=== PATIENT | female | born 1955 | race Caucasian/White ===

== ENCOUNTER 2016-06-07 09:13 | Observation (INO) ==
--- NOTE | 2016-06-07 09:58 | Emergency Department Note ---
Disposition Clinical Impression: DVT (deep venous thrombosis), Hypoxemia, Obesity, Arthritis, Leukocytosis, Frail elderly, Chronic back pain, Elevated C-reactive protein (CRP), Acute exacerbation of chronic obstructive airways disease, Lung nodules, Hypertension , Pulmonary hypertension Disposition: Admitted As Inpatient General Adult HPI - General Chief complaint: ED General Medical Stated complaint: joint pain Time Seen by Provider: 06/07/16 09:21 Source: EMS - History of Present Illness HPI Narrative: 61-year-old female reports the emergency department complaining of generalized joints aches and pains. She has a history of arthritis and is treated for chronic pain syndrome with narcotics. The patient was brought in by EMS. She reports they gave her breathing treatment because her lungs were somewhat coarse sounding. She does not usually wear oxygen and they were wears 3 L at night. The patient reports she has not element of COPD but does not usually require breathing medications on a regular basis or oxygen in the day. The patient denies any chest pain or marking shortness of breath. There is no history of abdominal pain vomiting or diarrhea. The patient has had no back pain no fevers. No joint swelling no trauma. No trouble moving her arms or legs independently. No difficulty with coldness blueness numbness or weakness of the arms or legs. No leg swelling or pain coughing up blood or syncope. The patient describes achiness throughout her entire body, or tachycardia currently her major joints. She has no history of rheumatoid arthritis. Onset (ago): hour(s) Pain Scale: 7 - Related Data Home Medications Medication Instructions Recorded Confirmed Cholecalciferol (Vitamin D3) 10,000 unit PO AD PRN 11/19/14 06/07/16 [Maximum D3] Ferrous Sulfate 325 mg PO BID 11/19/14 06/07/16 Hydrochlorothiazide 25 mg PO QAM 11/19/14 06/07/16 Methadone 20 mg PO Q6H PRN 11/19/14 06/07/16 Oxycodone HCl 10 mg PO Q6H PRN 11/19/14 06/07/16 Ipratropium/Albuterol Neb [Duoneb] 3 ml IH Q4HR 12/22/15 06/07/16 Metformin HCl [Glucophage] 1,000 mg PO DAILY 12/22/15 06/07/16 Sertraline [Zoloft] 50 mg PO DAILY 12/22/15 06/07/16 Alogliptin Benzoate [Alogliptin] 25 mg PO DAILY 06/07/16 06/07/16 Aspirin 81 mg PO DAILY 06/07/16 06/07/16 Docusate Sodium [Dok] 100 mg PO DAILY PRN 06/07/16 06/07/16 Levothyroxine [Synthroid] 50 mcg PO 0630 06/07/16 06/07/16 Previous Rx's Medication Instructions Recorded Albuterol Sulfate [Albuterol 1 puff IH Q6HR #1 inh 11/20/14 Inhaler] Allergies Allergy/AdvReac Type Severity Reaction Status Date / Time naproxen [From Naprosyn] AdvReac Severe Swelling Verified 06/07/16 14:53 All systems ED: reviewed and negative except as stated. Past Medical History - Past Medical History Medical history: Reports: arthritis, COPD, diabetes, hypertension, thyroid disease, other Surgical history: Reports: appendectomy, cholecystectomy, hysterectomy, other Psychiatric history: Reports: depression CROP PRODUCTION ADVISOR history: Reports: - Social History Smoking Status: Current every day smoker Smokeless Tobacco Status: No Alcohol use: Reports: none Drug use: Reports: none Physical Exam - General Limitations: no limitations General appearance: alert, in no apparent distress - Head Head exam: atraumatic, normocephalic, normal inspection - Eye Eye exam: Present: normal appearance, PERRL, EOMI - ENT ENT exam: normal exam, normal oropharynx, mucous membranes moist, TM's normal bilaterally, normal external ear exam - Neck Neck exam: Present: normal inspection, full ROM, trachea midline. Absent: tenderness - Chest Chest inspection: Present: symmetric chest wall rise. Absent: tenderness - Respiratory Respiratory exam: Present: normal lung sounds bilaterally. Absent: respiratory distress - Cardiovascular Cardiovascular exam: Present: regular rate, normal rhythm, normal heart sounds - Abdominal Exam Abdominal exam: Present: soft, Non-Tender, normal bowel sounds. Absent: tenderness, distention, guarding, rebound, rigidity - Extremities Exam Extremities exam: Present: full ROM, tenderness (Generalized tenderness with good range of motion in the major joints of the upper and lower extremities. Apart from the right knee region noting some swelling and tenderness with motion , no ronan swelling of an individual joint appreciated no ronan trauma. There is no skin redness. No open lesion or ronan joint effusion.), normal capillary refill. Absent: normal inspection (Edema about the right lower extremity in the calf and knee and thigh area. No redness or ronan joint instability.), pedal edema, joint swelling, calf tenderness - Expanded Lower Extremity Exam Lower leg exam: Absent: Homans' sign Neurovascular/Tendon exam: Absent: motor deficit, sensory deficit, tendon deficit, extremity cold to touch, pallor - Back Exam Back exam: Present: normal inspection, full ROM. Absent: tenderness, CVA tenderness (R), CVA tenderness (L), vertebral tenderness - Neurological Exam Neurological exam: Present: alert, oriented X3, CN II-XII intact. Absent: motor sensory deficit - Psychiatric Psychiatric exam: Present: normal affect, normal mood - Skin Skin exam: Present: warm, dry, intact, normal color. Absent: rash, cyanosis, diaphoresis, erythema, pallor, mottled Course - Reevaluation(s) Reevaluation #1: The patient was monitored here in the emergency department. She had persistent pain in herjoints. The patient's daughter came in and told us the patient had hyperextended her right knee a few days ago when she slipped on a carpet. 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 There is no history of fall. The patient has no previous history of DVT. X-rays of been ordered as well as ultrasound study. Vital Signs Temperature 99.4 F 06/07/16 09:16 Pulse Rate 81 06/07/16 09:16 Respiratory Rate 12 06/07/16 09:16 Blood Pressure 155/77 06/07/16 09:16 O2 Sat by Pulse Oximetry 89 L 06/07/16 09:16 Temperature 99.4 F 06/07/16 09:16 Pulse Rate 86 06/07/16 11:32 Respiratory Rate 10 06/07/16 11:32 Blood Pressure 148/76 06/07/16 11:32 O2 Sat by Pulse Oximetry 91 L 06/07/16 11:32 Oxygen Delivery Oxygen Delivery Nasal Cannula Medical Decision Making - MDM Narrative Medical decision making narrative: The patient is positive for DVT in the right lower extremity, Xarelto was ordered. The patient takes multiple opiates for chronic back pain. She has had severe joint pain is now unable to ambulate well. Per her daughter they had to call EMS to bring the patient in. We gave the patient doses of Dilaudid and Zofran here. She still had significant pain, her pain was essentially uncontrolled. Notably the patient was hypoxemic at 89% on room air. She was supplied with oxygen, EMS gave her a nebulizer. For her initial leukocytosis hypoxemia and apparent cough with low-grade fever and elevated CRP, antibiotics were given. Blood cultures were sent. Solu-Medrol was given IV. IV fluid was also initiated. X-rays of the right lower extremity are negative. CTA of the chest reveals pulmonary hypertension without notable PE, but limited due to suboptimal contrast injection I reviewed the case with the hospitalist on-call based on the patient's multiple concerns including new onset DVT, persistent hypoxemia, pain uncontrolled on multiple opiates, inability to ambulate and take care of herself, and multi-arthralgia, also contributory is that the patient is elderly, somewhat obese, and is unable to take care of herself in her current condition. I fear if the patient were to take too many pain medications at home while alone and in her compromised ambulatory state in concert with her hypoxemia that she may decompensate further or possibly overdose. The patient may benefit from inpatient rehabilitation with transition to a intermediate, I have mentioned this is a possibility the patient and family member.. The patient does have a history of pulmonary hypertension which may be contributory to her hypoxemia. She does not usually wear oxygen at home in the daytime but does wear it at night. The patient's daughter feels the patient is unable to go home and is unsafe to go home. The hospitalist came to the ED to evaluate the patient. - Lab Data Lab results reviewed: Yes I reviewed the patient's lab results. Result diagrams: 06/07/16 10:41 06/07/16 10:41 Lab Results 06/07/16 06/07/16 06/07/16 Range/Units 10:27 10:41 10:41 WBC (4.3-11.1) K/mcL RBC (3.82-4.97) M/mcL Hgb (11.5-15.4) g/dL Hct (35.3-44.9) % MCV (83.0-100.0) fL MCH (28.0-33.3) pg MCHC (31.6-35.5) g/dL RDW (11.5-14.5) % Plt Count (140-400) K/mcL MPV (9.4-12.4) fL Immature Gran % (0-4) % Seg Neutrophils % % Lymphocytes % % Monocytes % % Eosinophils % % Basophils % % Neutrophils # (1.6-8.9) K/mcL Lymphocytes # (0.6-4.6) K/mcL Monocytes # (0.0-1.3) K/mcL Eosinophils # (0.0-0.6) K/mcL Basophils # (0.0-0.2) K/mcL PT 11.7 (9.4-12.1) Seconds INR 1.1 APTT 30.2 (26.0-36.0) Seconds Sodium (136-145) mEq/L Potassium (3.5-4.5) mEq/L Chloride (98-109) mEq/L Carbon Dioxide (19-29) mEq/L BUN (7-20) mg/dL Creatinine (0.57-1.11) mg/dL Est GFR ( Amer) (> 60) Est GFR (Non-Af Amer) (> 60) BUN/Creatinine Ratio (6-26) Glucose (70-99) mg/dL Calculated Osmolality (280-300) Lactic Acid 0.9 (0.5-2.2) mmol/L Calcium (8.6-10.8) mg/dL Total Bilirubin (0.2-1.2) mg/dL Direct Bilirubin (0.0-0.5) mg/dL Indirect Bilirubin (0.0-1.2) mg/dL AST (5-34) Units/L ALT (0-55) Units/L Alkaline Phosphatase (38-126) Units/L Creatine Kinase (29-168) Units/L Troponin I (0-0.03) ng/mL C-Reactive Protein (Less than 5) mg/L Serum Total Protein (6.0-8.3) g/dL Albumin (3.5-5.0) g/dL Globulin (2.4-3.5) g/dL Albumin/Globulin Ratio (1.1-2.2) Urine Color Yellow (Yellow) Urine Clarity Clear (Clear) Urine pH 6.5 (5.0-8.0) pH Units Ur Specific [place] 1.011 (1.010-1.025) Urine Protein Negative (Neg-Trace) mg/dL Urine Glucose (UA) Normal (Normal) mg/dL Urine Ketones Negative (Negative) mg/dL Urine Blood Negative (Negative) Urine Nitrite Negative (Negative) Urine Bilirubin Negative (Negative) Urine Urobilinogen Normal (Normal) mg/dL Ur Leukocyte Esterase Negative (Negative) Ur Culture Indicated? NO (NO) 06/07/16 06/07/16 06/07/16 Range/Units 10:41 10:41 10:41 WBC 13.9 H (4.3-11.1) K/mcL RBC 4.92 (3.82-4.97) M/mcL Hgb 13.9 (11.5-15.4) g/dL Hct 43.4 (35.3-44.9) % MCV 88.2 (83.0-100.0) fL MCH 28.3 (28.0-33.3) pg MCHC 32.0 (31.6-35.5) g/dL RDW 13.4 (11.5-14.5) % Plt Count 230 (140-400) K/mcL MPV 8.5 L (9.4-12.4) fL Immature Gran % 0.6 (0-4) % Seg Neutrophils % 88.7 % Lymphocytes % 6.2 % Monocytes % 4.0 % Eosinophils % 0.4 % Basophils % 0.1 % Neutrophils # 12.3 H (1.6-8.9) K/mcL Lymphocytes # 0.9 (0.6-4.6) K/mcL Monocytes # 0.6 (0.0-1.3) K/mcL Eosinophils # 0.1 (0.0-0.6) K/mcL Basophils # 0.0 (0.0-0.2) K/mcL PT (9.4-12.1) Seconds INR APTT (26.0-36.0) Seconds Sodium 135 L (136-145) mEq/L Potassium 4.2 (3.5-4.5) mEq/L Chloride 97 L (98-109) mEq/L Carbon Dioxide 30 H (19-29) mEq/L BUN 14 (7-20) mg/dL Creatinine 0.86 (0.57-1.11) mg/dL Est GFR ( Amer) > 60 (> 60) Est GFR (Non-Af Amer) > 60 (> 60) BUN/Creatinine Ratio 16 (6-26) Glucose 123 H (70-99) mg/dL Calculated Osmolality 282 (280-300) Lactic Acid (0.5-2.2) mmol/L Calcium 9.0 (8.6-10.8) mg/dL Total Bilirubin 0.7 (0.2-1.2) mg/dL Direct Bilirubin 0.3 (0.0-0.5) mg/dL Indirect Bilirubin 0.4 (0.0-1.2) mg/dL AST 16 (5-34) Units/L ALT 13 (0-55) Units/L Alkaline Phosphatase 53 (38-126) Units/L Creatine Kinase 41 (29-168) Units/L Troponin I 0.00 (0-0.03) ng/mL C-Reactive Protein 83 H (Less than 5) mg/L Serum Total Protein 7.4 (6.0-8.3) g/dL Albumin 3.7 (3.5-5.0) g/dL Globulin 3.7 H (2.4-3.5) g/dL Albumin/Globulin Ratio 1.0 L (1.1-2.2) Urine Color (Yellow) Urine Clarity (Clear) Urine pH (5.0-8.0) pH Units Ur Specific [place] (1.010-1.025) Urine Protein (Neg-Trace) mg/dL Urine Glucose (UA) (Normal) mg/dL Urine Ketones (Negative) mg/dL Urine Blood (Negative) Urine Nitrite (Negative) Urine Bilirubin (Negative) Urine Urobilinogen (Normal) mg/dL Ur Leukocyte Esterase (Negative) Ur Culture Indicated? (NO) - Radiology Data Radiology results reviewed: Yes I reviewed the patient's radiology results.
[2016-06-07] MEDS ORDERED: *HR* HYDROmorphone (PF) 1 MG/ML SYRINGE IVP ONE ×2 (10:38→12:41)
[2016-06-07] MEDS ORDERED: Ondansetron 4 MG/2 ML VIAL IVP ONE (10:39)
[2016-06-07 10:40] LABS: Bilirubin,Urine Negative (Negative); Blood,Urine Negative (Negative); Clarity,Urine Clear (Clear); Color,Urine Yellow (Yellow); Glucose,Urine (UA) Normal (Normal); Ketones,Urine Negative (Negative); Leukocyte Esterase,Urine Negative (Negative); Nitrite,Urine Negative (Negative); PH,Urine 6.5 pH Units (5.0-8.0); Protein,Urine Negative (Neg-Trace); Specific Gravity,Urine 1.011 (1.010-1.025); Urobilinogen,Urine Normal (Normal)
[2016-06-07 10:48] LABS: Basophils % 0.1 %; Eosinophils # 0.1 K/mcL (0.0-0.6); Eosinophils % 0.4 %; Hematocrit 43.4 % (35.3-44.9); Hemoglobin 13.9 g/dL (11.5-15.4); Immature Granulocytes % 0.6 % (0-4); Lymphocytes # 0.9 K/mcL (0.6-4.6); Lymphocytes % 6.2 %; Mean Corpuscular Hemoglobin 28.3 pg (28.0-33.3); Mean Corpuscular Volume 88.2 fL (83.0-100.0); Mean Platelet Volume 8.5 fL (9.4-12.4); Monocytes # 0.6 K/mcL (0.0-1.3); Neutrophils # 12.3 K/mcL (1.6-8.9); Platelet Count 230 K/mcL (140-400); Red Blood Count 4.92 M/mcL (3.82-4.97); Red Cell Distribution Width 13.4 % (11.5-14.5); Segmented Neutrophils % 88.7 %
[2016-06-07 11:03] LABS: Alanine Aminotransferase 13 Units/L (0-55); Albumin 3.7 g/dL (3.5-5.0); Alkaline Phosphatase 53 Units/L (38-126); Aspartate Amino Transferase 16 Units/L (5-34); BUN/Creatinine Ratio 16 (6-26); Bilirubin,Direct 0.3 mg/dL (0.0-0.5); Bilirubin,Indirect 0.4 mg/dL (0.0-1.2); Bilirubin,Total 0.7 mg/dL (0.2-1.2); Blood Urea Nitrogen 14 mg/dL (7-20); C-Reactive Protein 83 mg/L (Less than 5); Carbon Dioxide 30 mEq/L (19-29); Chloride 97 mEq/L (98-109); Creatine Kinase 41 Units/L (29-168); Globulin 3.7 g/dL (2.4-3.5); Glucose 123 mg/dL (70-99); Osmolality,Calculated 282 (280-300); Potassium 4.2 mEq/L (3.5-4.5); Sodium 135 mEq/L (136-145); Total Protein 7.4 g/dL (6.0-8.3); eGFR For African Americans > 60 (> 60); eGFR For Non-African Americans > 60 (> 60)
[2016-06-07 11:06] LABS: INR 1.1; Prothrombin Time 11.7 Seconds (9.4-12.1)
[2016-06-07 11:10] LABS: Activated Partial Thrombo Time 30.2 Seconds (26.0-36.0)
[2016-06-07] MEDS ORDERED: methylPREDNISolone 125 MG/2 ML VIAL IVP ONE (12:42)
[2016-06-07] MEDS ORDERED: 0.9 % Sodium Chloride 1,000 ML IVC ONE (12:44)
[2016-06-07] MEDS ORDERED: Levofloxacin 750 MG/150 ML 750 MG/150 ML BAG IVPB ONE (12:44)
[2016-06-07] MEDS ORDERED: *HR* Rivaroxaban 15 MG TABLET PO ONE (15:32)
[2016-06-07] MEDS ORDERED: Mag Hydrox/Al Hydrox/Simeth 30 ML UDC PO PRN (16:39)
[2016-06-07] MEDS ORDERED: MOM Conc 10 ML UD.LIQ PO PRN (16:39)
[2016-06-07] MEDS ORDERED: Naloxone 0.4 MG/ML INJ IVP PRN (16:39)
[2016-06-07] MEDS ORDERED: Acetaminophen 325 MG TABLET PO PRN (16:39)
[2016-06-07] MEDS ORDERED: Ondansetron 4 MG/2 ML VIAL IVP PRN (16:39)
[2016-06-07] MEDS ORDERED: D5% in Water 1,000 ML IV PRN (16:48)
[2016-06-07] MEDS ORDERED: Dextrose Gel 15 GM PO PRN ×2 (16:48)
[2016-06-07] MEDS ORDERED: *HR* Dextrose 50 % in Water (Syg) 50 ML SYRINGE IVP PRN (16:48)
--- NOTE | 2016-06-07 16:54 | Internal Med History&Physical ---
<Betito Naranjo P - Last Filed: 06/07/16 19:38> Date of Encounter: 06/07/16 Internal Medicine - H&P: HPI History of present illness: Ms. Hernandez is a 61 year old female Internal Medicine - H&P: Meds Cholecalciferol (Vitamin D3) [Maximum D3] 10,000 unit PO AD PRN 11/19/14 [ History] Ferrous Sulfate 325 mg PO BID 11/19/14 [History] Hydrochlorothiazide 25 mg PO QAM 11/19/14 [History] Methadone 20 mg PO Q6H PRN 11/19/14 [History] Oxycodone HCl 10 mg PO Q6H PRN 11/19/14 [History] Albuterol Sulfate [Albuterol Inhaler] 1 puff IH Q6HR #1 inh 11/20/14 [Rx] Ipratropium/Albuterol Neb [Duoneb] 3 ml IH Q4HR 12/22/15 [History] Metformin HCl [Glucophage] 1,000 mg PO DAILY 12/22/15 [History] Sertraline [Zoloft] 50 mg PO DAILY 12/22/15 [History] Alogliptin Benzoate [Alogliptin] 25 mg PO DAILY 06/07/16 [History] Aspirin 81 mg PO DAILY 06/07/16 [History] Docusate Sodium [Dok] 100 mg PO DAILY PRN 06/07/16 [History] Levothyroxine [Synthroid] 50 mcg PO 0630 06/07/16 [History] Allergies naproxen [From Naprosyn] Adverse Reaction (Severe, Verified 06/07/16 14:53) Swelling Lower extremity swelling All Systems PM: A 10-system review of systems was performed and is negative for pertinent findings except as documented above in the HPI. - Constitutional Vitals: Temp Pulse Resp BP Pulse Ox 98.5 F 85 16 128/66 90 L 06/07/16 16:43 06/07/16 16:43 06/07/16 16:43 06/07/16 16:43 06/07/16 17:02 Internal Med - H&P Results - Labs CBC & Chem 7: 06/07/16 10:41 06/07/16 10:41 - Attending Attestation I examined this patient and my medical decision-making was reviewed with the LACE AND TEXTILES RESTORER/PA/Advanced Practice Nurse/Resident Physician. I agree with the documented findings, disposition and treatment plan as described except to the extent set forth below. <Mayela Escobar - Last Filed: 06/07/16 20:09> Date of Encounter: 06/07/16 Time of Encounter: 16:20 Assessment and Plan (1) DVT (deep venous thrombosis) Current visit: Yes Status: Acute Pt began having R knee pain and diffuse joint pain last night. Today R knee pain became worse. Pt sent to ED and was found to have RLE DVT. Bedrest Xarelto 15mg po bid Telemetry Qualifiers: DVT location: lower extremity Laterality: right Chronicity: unspecified Qualified Code(s): I82.401 - Acute embolism and thrombosis of unspecified deep veins of right lower extremity (2) COPD (chronic obstructive pulmonary disease) Current visit: Yes Status: Chronic Lungs clear and diminished throughout. Pt has ronchi that clear with cough. Pt wears home 02 at night. Will continue Titrate 02 to maintain sats > 92% Duonebs q4h Albuterol q2h prn Continuous pulse ox Monitor labs Qualifiers: COPD type: emphysema Emphysema type: unspecified Qualified Code(s): J43.9 - Emphysema, unspecified (3) CHAYA (iron deficiency anemia) Current visit: Yes Status: Chronic Stable. Will continue to monitor and continue home Ferrous Sulfate. Qualifiers: Iron deficiency anemia type: inadequate dietary iron intake Qualified Code( s): D50.8 - Other iron deficiency anemias (4) Diabetes mellitus Current visit: Yes Status: Acute Pt states that her A1c was 6.1% at PCP office last week. Serum glucose 123mg/dl today. Diabetic diet Accucheck achs Sliding scale insulin Qualifiers: Diabetes mellitus type: type 2 Diabetes mellitus complication status: with neurologic complications Diabetes mellitus complication detail: with unspecified neuropathy Diabetes mellitus extermination inspector insulin use: without custodial use Qualified Code(s): E11.40 - Type 2 diabetes mellitus with diabetic neuropathy, unspecified (5) Chronic back pain Current visit: Yes Status: Chronic Pt reports herniated and bulging discs, lumbar stenosis, and constant 5/10 back pain. Will continue home medications. Qualifiers: Back pain location: low back pain Back pain laterality: midline Sciatica presence: unspecified whether sciatica present Qualified Code(s): M54.5 - Low back pain; G89.29 - Other chronic pain (6) Hypertension Current visit: Yes Status: Chronic STable. Continue home medications. Qualifiers: Hypertension type: essential hypertension Qualified Code(s): I10 - Essential (primary) hypertension (7) Hypothyroidism Current visit: No Status: Chronic Stable. Continue Levothyroxine home dose. Qualifiers: Hypothyroidism type: acquired Qualified Code(s): E03.9 - Hypothyroidism, unspecified Internal Medicine - H&P: HPI Chief complaint: joint pain Admitted From: Home Plans for Post Hospital Care: Home History of present illness: Ms. Hernandez is a 61 year old female with history of DMII, depression, hypthyroidism, COPD, HTN, Iron deficiency anemia, and chronic back pain. She presented to the ED today for diffuse joint pain that started last night, mainly in kamla hands and neck. Today pain was all over and worse. She was found to have a DVT in RLE and has been admitted for pain control and to start anticoagulation. Pt states that she is not sure how she was going to walk into or around her home due to pain. Past Med Surg Social Fam HX - Past Medical History Medical history: arthritis, COPD, diabetes, hypertension, thyroid disease, other Psychiatric history: depression - Past Surgical History Surgical History: appendectomy, cholecystectomy, hysterectomy, other - Social History Smoking Status: Current every day smoker Smokeless Tobacco Status: No Alcohol use: none Drug use: none - Family History Father Adopted: No Family Member Ethnicity: Non- Living Status: Hx Family Cancer: Yes (brain cancer) All Systems PM: A 10-system review of systems was performed and is negative for pertinent findings except as documented above in the HPI. - Constitutional Constitutional: no anorexia, no chills, no fatigue, no fever(s), no falls, no weakness - Cardiovascular Cardiovascular ROS IM: no chest pain, no dyspnea, no dyspnea on exertion, no lightheadedness - Respiratory Respiratory: cough, no wheezing, no pain on inspiration, no chest congestion, no excessive phlegm production, no pain with cough - Gastrointestinal Gastrointestinal: no constipation, no diarrhea, no nausea, no vomiting - Musculoskeletal Musculoskeletal ROS IM: arthralgias, back pain, myalgias Additional comments: Pt reports pain to L ant knee which is what initially brought her in. She states that she has had diff ambulating today due to pain. - Integumentary Integumentary IM: no rash - Constitutional Vitals: Temp Pulse Resp BP Pulse Ox 99.4 F 86 13 136/69 91 L 06/07/16 09:16 06/07/16 11:32 06/07/16 15:53 06/07/16 15:53 06/07/16 11:32 General appearance: Present: cooperative, A&O X 3, pleasant, answers questions appropriately - Head Head exam: Present: atraumatic, normal inspection - Eye Eye exam: Present: normal appearance, conjuntiva pink - ENT ENT exam: Present: mucous membranes moist, normal exam - Neck Neck exam general surgery: Present: normal inspection. Absent: full ROM, tenderness, thyromegaly - Respiratory Respiratory exam: Present: CTAB, rhonchi. Absent: chest wall tenderness, decreased breath sounds, respiratory distress, wheezes, tachypnea Additional comments: Pt with ronchi in kamla apices, clears with cough. - Cardiovascular Cardiovascular exam: Present: RRR, +S1, +S2. Absent: bradycardia, tachycardia - GI/Abdominal GI/Abdominal exam: Present: normal bowel sounds, soft. Absent: tenderness - Extremities Exam Extremities exam: Present: normal capillary refill, normal inspection, warm, radial pulses palpable and symetrical. Absent: calf tenderness, cyanotic, joint swelling, mottling, pedal edema, tenderness Additional comments: Pt has palpable pulses in ble, R > L. Internal Med - H&P Results - Labs CBC & Chem 7: 06/07/16 10:41 06/07/16 10:41
[2016-06-07] MEDS ORDERED: Albuterol 2.5 MG/3 ML NEBULIZER IH PRN (16:59)
[2016-06-07] MEDS: *HR* OxyCODONE Immed Rel 5 MG TABLET PO PRN (18:38)
[2016-06-07] MEDS: Ipratropium/Albuterol Neb 3 ML IH SCH ×3 (19:49→23:19)
[2016-06-07] MEDS ORDERED: Insulin LISPRO 300 UNITS/3 ML VIAL SQ SCH (21:00)
[2016-06-07] MEDS: *HR* Rivaroxaban 15 MG TABLET PO SCH (22:11)
[2016-06-07] MEDS: *HR* Methadone 10 MG TABLET PO PRN (23:02)
[2016-06-08] MEDS: Ipratropium/Albuterol Neb 3 ML IH SCH ×4 (04:04→16:46)
[2016-06-08 06:10] LABS: Basophils % 0.1 %; Hematocrit 39.3 % (35.3-44.9); Hemoglobin 12.5 g/dL (11.5-15.4); Immature Granulocytes % 0.4 % (0-4); Lymphocytes % 10.2 %; Mean Corpuscular HGB Conc 31.8 g/dL (31.6-35.5); Mean Corpuscular Hemoglobin 28.2 pg (28.0-33.3); Mean Corpuscular Volume 88.7 fL (83.0-100.0); Mean Platelet Volume 9.4 fL (9.4-12.4); Monocytes # 0.5 K/mcL (0.0-1.3); Neutrophils # 8.2 K/mcL (1.6-8.9); Platelet Count 222 K/mcL (140-400); Red Blood Count 4.43 M/mcL (3.82-4.97); Red Cell Distribution Width 12.9 % (11.5-14.5); Segmented Neutrophils % 84.3 %
[2016-06-08] MEDS: *HR* OxyCODONE Immed Rel 5 MG TABLET PO PRN ×2 (06:24→12:42)
[2016-06-08 06:31] LABS: BUN/Creatinine Ratio 26 (6-26); Blood Urea Nitrogen 20 mg/dL (7-20); Calcium 8.8 mg/dL (8.6-10.8); Carbon Dioxide 31 mEq/L (19-29); Chloride 96 mEq/L (98-109); Glucose 116 mg/dL (70-99); Osmolality,Calculated 280 (280-300); Sodium 133 mEq/L (136-145); eGFR For African Americans > 60 (> 60); eGFR For Non-African Americans > 60 (> 60)
--- NOTE | 2016-06-08 07:35 | Venous Imaging Report ---
LE Venous Duplex Patient Name:Marry Hernandez Order Number:[id number] Procedure Date:06/07/2016 Date:6Age:61 yrs Gender:Female Location:[facility] ED Room #: ER 22 Behavioral Interventionist:Mayela Jensen RDCS, JAVIER Referring MD:Filippo Wood MD shot tube machine tender:Caroline Amanda, COMMISSARY CLERK Reading MD:Raudel Roberson MD Primary Indications:Pain Secondary Indications: Risk Factors Yes/No Anticoagulants No Hx of DVT No Hx of Chemotherapy No Recent Surgery No Hx of Superficial Phlebitis Yes Impressions: Acute deep venous thrombosis is present in the right peroneal vein. Acute superficial venous thrombosis is present in the right greater saphenous vein. Normal contralateral common femoral vein. Recommendations: After imaging the patient returned to their room. Test completed on 06/07/2016 at 1:50:00 pm. Critical findings reported to Dr. Wood by phone at 2:05:52 pm on 06/07/2016 by Mayela Jensen RDCS, RVT. Findings Prior Study: No prior study available for comparison. Lower Extremity Venous Duplex Side Vein Compress Spontaneous Flow Augment Diameter (cm) Depth (cm) Right Distal Iliac Normal Yes Pulsatile Yes Right Common Femoral Normal Yes Pulsatile Yes Right Superficial Femoral Normal Yes Phasic Yes Right Popliteal Normal Yes Phasic Yes Right Posterior Tibial None Yes Phasic Yes Right Peroneal None no Absent no Right Great Saphenous Normal no Absent no Right Lesser Saphenous Normal Yes Phasic Yes Updated by Raudel Roberson MD on 06/08/2016 7:31:37 AM electronically signed on 06/08/2016 7:31:53 AM with status of Final
[2016-06-08] MEDS: Insulin LISPRO 300 UNITS/3 ML VIAL SQ SCH ×3 (07:46→17:21)
[2016-06-08] MEDS: *HR* Rivaroxaban 15 MG TABLET PO SCH (08:57)
[2016-06-08] MEDS ORDERED: Aspirin 81 MG TAB.CHEW PO SCH (09:00)
[2016-06-08] MEDS ORDERED: Cholecalciferol (D-3) 1,000 UNIT TABLET PO SCH (09:00)
[2016-06-08] MEDS ORDERED: hydroCHLOROthiazide 25 MG TABLET PO SCH (09:00)
[2016-06-08] MEDS: *HR* Methadone 10 MG TABLET PO PRN ×2 (09:08→17:24)
--- NOTE | 2016-06-08 09:52 | Electrocardiograph Report ---
[place] [id number] Test Date: 2016-06-07 Pat Name: Marry Hernandez Department: 103 Room: 2N2 Gender: F Flask Pusher: : 1955 Requested By: Filippo Wood Order Number: [id number] Reading MD: Fely Bonilla Measurements Intervals [place] Rate: 79 P: 52 MI: 126 QRS: 53 QRSD: 117 T: 36 QT: 365 QTc: 400 Interpretive Statements SINUS RHYTHM INTRAVENTRICULAR CONDUCTION DELAY BASELINE ARTIFACT Electronically Signed On 06-08-2016 9:50:54 EST by Fely Bonilla
--- NOTE | 2016-06-08 14:33 | Discharge Summary ---
Date of Encounter: 06/08/16 Time of Encounter: 14:27 - Discharge Diagnosis (1) DVT (deep venous thrombosis) Priority: Primary Status: Acute Qualifiers: DVT location: lower extremity Affected thrombotic vein of extremity: unspecified lower extremity distal vein Laterality: right Chronicity: unspecified Qualified Code(s): I82.4Z1 - Acute embolism and thrombosis of unspecified deep veins of right distal lower extremity (2) Diabetes mellitus Priority: Secondary Status: Chronic Qualifiers: Diabetes mellitus type: type 2 Diabetes mellitus complication status: with neurologic complications Diabetes mellitus complication detail: with unspecified neuropathy Diabetes mellitus retirement insulin use: without retirement use Qualified Code(s): E11.40 - Type 2 diabetes mellitus with diabetic neuropathy, unspecified (3) Obesity Priority: Secondary Status: Chronic Qualifiers: Obesity type: due to excess calories Obesity severity: non-morbid Qualified Code(s): E66.09 - Other obesity due to excess calories (4) Pulmonary hypertension Priority: Secondary Status: Chronic (5) COPD (chronic obstructive pulmonary disease) Priority: Secondary Status: Chronic Qualifiers: COPD type: emphysema Emphysema type: unspecified Qualified Code(s): J43.9 - Emphysema, unspecified (6) Chronic back pain Priority: Secondary Status: Chronic Qualifiers: Back pain location: low back pain Back pain laterality: midline Sciatica presence: unspecified whether sciatica present Qualified Code(s): M54.5 - Low back pain; G89.29 - Other chronic pain (7) Hypertension Priority: Secondary Status: Chronic Qualifiers: Hypertension type: essential hypertension Qualified Code(s): I10 - Essential (primary) hypertension (8) CHAYA (iron deficiency anemia) Priority: Secondary Status: Chronic Qualifiers: Iron deficiency anemia type: unspecified iron deficiency Qualified Code(s) : D50.9 - Iron deficiency anemia, unspecified (9) Hypothyroidism Priority: Secondary Status: Chronic Qualifiers: Hypothyroidism type: acquired Qualified Code(s): E03.9 - Hypothyroidism, unspecified - Discharge Medications Prescriptions: Rivaroxaban [Xarelto] 15 mg PO BID 21 Days Rivaroxaban [Xarelto] 20 mg PO DAILY #10 tablet Home Medications: Cholecalciferol (Vitamin D3) [Maximum D3] 10,000 unit PO AD PRN 11/19/14 [ History] Ferrous Sulfate 325 mg PO BID 11/19/14 [History] Hydrochlorothiazide 25 mg PO QAM 11/19/14 [History] Methadone 20 mg PO Q6H PRN 11/19/14 [History] Oxycodone HCl 10 mg PO Q6H PRN 11/19/14 [History] Albuterol Sulfate [Albuterol Inhaler] 1 puff IH Q6HR #1 inh 11/20/14 [Rx] Ipratropium/Albuterol Neb [Duoneb] 3 ml IH Q4HR 12/22/15 [History] Metformin HCl [Glucophage] 1,000 mg PO DAILY 12/22/15 [History] Sertraline [Zoloft] 50 mg PO DAILY 12/22/15 [History] Alogliptin Benzoate [Alogliptin] 25 mg PO DAILY 06/07/16 [History] Aspirin 81 mg PO DAILY 06/07/16 [History] Docusate Sodium [Dok] 100 mg PO DAILY PRN 06/07/16 [History] Levothyroxine [Synthroid] 50 mcg PO 0630 06/07/16 [History] Rivaroxaban [Xarelto] 15 mg PO BID 21 Days 06/08/16 [Rx] Rivaroxaban [Xarelto] 20 mg PO DAILY #10 tablet 06/29/16 [Rx] Allergies/Adverse Reactions: Allergies naproxen [From Naprosyn] Adverse Reaction (Severe, Verified 06/07/16 14:53) Swelling Lower extremity swelling Date of admission: 06/07/16 15:22 Primary care physician: Caroline Amanda CNP Consults: 06/08/16 09:34 Consult to [employer] [facility] [CONS] Routine Reason for SW Consult: Xarelto woods check Discharging clinician: Natalie Severino Anticipated date of discharge: 06/08/16 - Patient Status Disposition: Home, Self-Care Condition: Fair Functional capacity at discharge: independent ambulation Overall status at discharge: patient is progressing back to baseline - Discharge Instructions Instructions: Rivaroxaban (By mouth), Chronic Obstructive Pulmonary Disease (DC ) Follow Up With: Caroline Amanda CNP [Primary Care Provider] - 06/22/16 1:00 pm - Diet and Activity Activity: resume usual activities as tolerated (avoid over-exertion, limited ambulation for 5-6 days post-discharge), wear oxygen at all times Diet: diabetic diet, low fat, low cholesterol, low salt diet [facility] course: Ms. Hernandez is a 61 year old female with the above medical problems, admitted with pain in right leg and knee. She was noted to have right peroneal DVT on Venous Doppler imaging. She was started on Xarelto which she tolerated well. CTA chest showed no e/o- PE. Patient is now medically stable for discharge with oral anticoagulation for at least 4-6 months for unprovoked DVT. - Time Spent with Patient Total time spent providing and/or coordinating discharge services: Greater than 30 minutes (45 min) - Constitutional Vitals: Temp Pulse Resp BP Pulse Ox 98.7 F 78 16 122/70 95 06/08/16 11:37 06/08/16 11:37 06/08/16 11:37 06/08/16 11:37 06/08/16 11:37 General appearance: Present: cooperative, A&O X 3, answers questions appropriately - Respiratory Respiratory exam: Present: CTAB. Absent: accessory muscle use, rales, rhonchi, wheezes - Cardiovascular Cardiovascular exam: Present: RRR, +S1, +S2. Absent: diastolic murmur, gallop, rubs, systolic murmur
[2016-06-08] MEDS ORDERED: FLU VACC QS2016-17 36MOS UP/PF 0.5 ML SYRINGE IM ONE (15:36)
[2016-06-08 15:45] VITALS: BP 125/73
== END 2016-06-08 18:48 | disposition home or self-care (01) ==
LOC: EMEROO 09:13 → 2NENU 09:13
PROVIDERS: ADMIT Internal Medicine; ATTEND Internal Medicine

== ENCOUNTER 2019-10-17 12:31 | Inpatient (IN) ==
[2019-10-17] MEDS ORDERED: Piperacillin/Tazobactam 3.375 GM in Water for inj. (sterile) 20 ML IVP ONE (12:53)
[2019-10-17 13:13] LABS: VBG HCO3 32 mEq/L (21-27); VBG PCO2 67 mmHg (41-51); VBG PH 7.29 pH Units (7.32-7.42); VBG PO2 46 mmHg (25-50)
[2019-10-17 13:14] LABS: Hematocrit 42.6 % (35.3-44.9); Hemoglobin 13.3 g/dL (11.5-15.4); Mean Corpuscular HGB Conc 31.2 g/dL (31.6-35.5); Mean Corpuscular Hemoglobin 28.7 pg (28.0-33.3); Mean Corpuscular Volume 91.8 fL (83.0-100.0); Mean Platelet Volume 9.2 fL (9.4-12.4); Platelet Count 254 K/mcL (140-400); Red Blood Count 4.64 M/mcL (3.82-4.97); Red Cell Distribution Width 12.8 % (11.5-14.5); White Blood Count 25.1 K/mcL (4.3-11.1)
[2019-10-17] MEDS ORDERED: Isovue-370 500 ML BOTTLE IVP ONE ×2 (13:21→14:57)
[2019-10-17] MEDS ORDERED: Piperacillin/Tazobactam 3.375 GM in 0.9 % Sodium Chloride Mini Bag 100 ML IVPB ONE (13:21)
[2019-10-17] MEDS ORDERED: Vancomycin 1,500 MG/265 ML IV.SOLN IVPB ONE ×2 (13:25→20:53)
[2019-10-17 13:29] LABS: Lymphocytes # 1.3 K/mcL (0.6-4.6); Monocytes # 0.8 K/mcL (0.0-1.3); Neutrophils # 23.1 K/mcL (1.6-8.9); Platelet Estimate Normal (Normal)
[2019-10-17 13:34] LABS: Bacteria,Urine Few per hpf (None-Few); Bilirubin,Urine Negative (Negative); Blood,Urine Trace (Negative); Clarity,Urine Clear (Clear); Color,Urine Yellow (Yellow); Glucose,Urine (UA) 100 mg/dL (Normal); Ketones,Urine Negative (Negative); Leukocyte Esterase,Urine Negative (Negative); Mucus,Urine Few per lpf (None-Few); Nitrite,Urine Negative (Negative); PH,Urine 5.5 pH Units (5.0-8.0); Protein,Urine 50 mg/dL (Neg-Trace); RBC,Urine 0-3 per hpf (0-3); Specific Gravity,Urine 1.024 (1.010-1.025); Squamous Epithelial Cell,Urine Few per hpf (None-Few); Urobilinogen,Urine Normal (Normal); WBC,Urine 0-3 per hpf (0-3)
[2019-10-17 13:42] LABS: Alanine Aminotransferase 9 Units/L (7-52); Albumin 4.3 g/dL (3.5-5.7); Albumin/Globulin Ratio 1.4 (1.1-2.2); Alkaline Phosphatase 45 Units/L (34-104); Aspartate Amino Transferase 13 Units/L (13-39); BUN/Creatinine Ratio 18 (6-26); Bilirubin,Direct 0.2 mg/dL (0.0-0.2); Bilirubin,Indirect 0.3 mg/dL (0.0-1.0); Bilirubin,Total 0.5 mg/dL (0.3-1.0); Blood Urea Nitrogen 18 mg/dL (8-23); Calcium 9.1 mg/dL (8.6-10.3); Carbon Dioxide 30 mEq/L (23-29); Chloride 98 mEq/L (98-107); Glucose 209 mg/dL (70-105); Osmolality,Calculated 288 (280-300); Potassium 3.8 mEq/L (3.5-5.1); Sodium 135 mEq/L (136-145); Total Protein 7.3 g/dL (6.4-8.9); Troponin I 0.03 ng/mL (< 0.04); eGFR For African Americans > 60 (> 60); eGFR For Non-African Americans 55 (> 60)
[2019-10-17] MEDS: FentaNYL (PF) 1,000 MCG/100 ML IV.SOLN IVC SCH (14:43)
[2019-10-17] MEDS ORDERED: Aminoglycoside Consult 1 EACH MC ONE (15:23)
[2019-10-17] MEDS ORDERED: *HR* Rocuronium Bromide 50 MG/5 ML VIAL IVP ONE (15:45)
[2019-10-17] MEDS ORDERED: *HR* Etomidate 20 MG/10 ML AMPUL IVP ONE (15:45)
[2019-10-17] MEDS ORDERED: 0.9 % Sodium Chloride 1,000 ML IVC ONE ×4 (15:45→19:20)
[2019-10-17] MEDS ORDERED: 0.9 % Sodium Chloride 1,000 ML ONE (15:46)
[2019-10-17 16:25] LABS: Adenovirus Not Detected (Not Detect); Bordetella Pertussis Not Detected (Not Detect); Chlamydophila pneumoniae Not Detected (Not Detect); Coronavirus 229E Not Detected (Not Detect); Coronavirus HKU1 Not Detected (Not Detect); Coronavirus NL63 Not Detected (Not Detect); Coronavirus OC43 Not Detected (Not Detect); Human Metapneumovirus Not Detected (Not Detect); Human Rhinovirus/Enterovirus Not Detected (Not Detect); Influenza A Subtype 2009 H1 Not Detected (Not Detect); Influenza B Not Detected (Not Detect); Mycoplasma pneumoniae Not Detected (Not Detect); Parainfluenza Virus 1 Not Detected (Not Detect); Parainfluenza Virus 2 Not Detected (Not Detect); Parainfluenza Virus 3 Not Detected (Not Detect); Parainfluenza Virus 4 Not Detected (Not Detect); Respiratory Syncytial Virus Not Detected (Not Detect); SARS-CoV-2 Not Detected (Not Detect)
[2019-10-17] MEDS ORDERED: Acetaminophen 650 MG RECTAL SUPP RC ONE (16:54)
[2019-10-17] MEDS ORDERED: Artificial Tears SOLN 15 ML BOTTLE BOTH EYES PRN (18:51)
[2019-10-17] MEDS ORDERED: Dextrose Gel 15 GM/37.5 ML TUBE PO PRN ×2 (18:51)
[2019-10-17] MEDS ORDERED: D5% in Water 1,000 ML IVC PRN (18:51)
[2019-10-17] MEDS ORDERED: Naloxone 0.4 MG/ML INJ IVP PRN (18:51)
[2019-10-17] MEDS ORDERED: Albuterol 2.5 MG/3 ML NEBULIZER IH PRN (18:51)
[2019-10-17] MEDS ORDERED: *HR* Dextrose 50 % in Water (Vial) 50 ML VIAL IVP PRN (18:51)
[2019-10-17] MEDS ORDERED: Vancomycin (wt based) 1,000 MG VIAL IVPB SCH (19:00)
[2019-10-17] MEDS ORDERED: Dexmedetomidine HCl 400 MCG/100 ML MLS IVC ONE (19:25)
[2019-10-17] MEDS: Dexmedetomidine HCl 400 MCG/100 ML MLS IVC SCH (19:30)
[2019-10-17 20:50] LABS: ABG Base Excess 0 mEq/L (-2 to 3); ABG HCO3 27 mEq/L (21-27); ABG Oxygen Saturation 86 % (95-98); ABG PCO2 50 mmHg (35-45); ABG PH 7.33 pH Units (7.32-7.45); ABG PO2 55 mmHg (85-104); ABG TCO2 28 mEq/L (20-26); Blood Gas Modality AF; Blood Gas VT 480 cc
[2019-10-17] MEDS: Ipratropium/Albuterol Neb 3 ML IH SCH ×2 (20:58→23:51)
[2019-10-17] MEDS: Budesonide/Formoterol 160/4.5 1 PUFF INH IH SCH (20:58)
[2019-10-17] MEDS: *HR* Heparin 5,000 UNIT/ML VIAL SQ SCH (21:15)
[2019-10-17] MEDS: Chlorhexidine Rinse 15 ML MOUTHWASH MM SCH (21:15)
[2019-10-17] MEDS: Artificial Tears SOLN 15 ML BOTTLE BOTH EYES SCH ×2 (21:17→23:54)
[2019-10-17] MEDS: Piperacillin/Tazobactam 3.375 GM in 0.9 % Sodium Chloride Mini Bag 100 ML IVPB SCH (23:53)
[2019-10-17] MEDS: Insulin LISPRO 300 UNITS/3 ML VIAL SQ SCH (23:53)
[2019-10-18] MEDS: Vancomycin 1,250 MG/262.5 ML IV.SOLN IVPB SCH ×2 (02:11→14:58)
[2019-10-18] MEDS: Ipratropium/Albuterol Neb 3 ML IH SCH ×6 (03:54→23:26)
[2019-10-18] MEDS: Artificial Tears SOLN 15 ML BOTTLE BOTH EYES SCH ×6 (04:50→23:43)
[2019-10-18 05:26] LABS: ABG Base Excess 0 mEq/L (-2 to 3); ABG HCO3 26 mEq/L (21-27); ABG Oxygen Saturation 89 % (95-98); ABG PCO2 46 mmHg (35-45); ABG PH 7.36 pH Units (7.32-7.45); ABG PO2 59 mmHg (85-104); ABG TCO2 28 mEq/L (20-26); Blood Gas Modality AF; Blood Gas VT 480 cc
[2019-10-18] MEDS: *HR* Heparin 5,000 UNIT/ML VIAL SQ SCH ×3 (05:40→20:16)
[2019-10-18] MEDS: Pantoprazole 40 MG VIAL IVP SCH (05:40)
[2019-10-18] MEDS: Doxycycline 100 MG in 0.9 % Sodium Chloride Mini Bag 100 ML IVPB SCH ×2 (05:40→18:51)
[2019-10-18] MEDS: Insulin LISPRO 300 UNITS/3 ML VIAL SQ SCH ×4 (05:46→23:42)
[2019-10-18] MEDS ORDERED: methylPREDNISolone 125 MG/2 ML VIAL IVP SCH (06:00)
[2019-10-18 06:50] LABS: Basophils % 0.2 %; Hematocrit 33.3 % (35.3-44.9); Immature Granulocytes % 2.4 % (0-4); Lymphocytes # 0.8 K/mcL (0.6-4.6); Lymphocytes % 5.2 %; Mean Corpuscular HGB Conc 31.5 g/dL (31.6-35.5); Mean Corpuscular Hemoglobin 29.9 pg (28.0-33.3); Mean Corpuscular Volume 94.9 fL (83.0-100.0); Mean Platelet Volume 9.3 fL (9.4-12.4); Monocytes # 0.6 K/mcL (0.0-1.3); Monocytes % 3.8 %; Neutrophils # 14.4 K/mcL (1.6-8.9); Platelet Count 177 K/mcL (140-400); Red Blood Count 3.51 M/mcL (3.82-4.97); Red Cell Distribution Width 13.1 % (11.5-14.5); Segmented Neutrophils % 88.4 %; White Blood Count 16.2 K/mcL (4.3-11.1)
[2019-10-18 06:51] LABS: Hemoglobin 10.5 g/dL (11.5-15.4)
[2019-10-18 07:04] LABS: INR 1.3; Prothrombin Time 14.7 Seconds (9.4-12.1)
[2019-10-18 07:23] LABS: Albumin 3.2 g/dL (3.5-5.7); Albumin/Globulin Ratio 1.3 (1.1-2.2); Bilirubin,Direct 0.2 mg/dL (0.0-0.2); Bilirubin,Indirect 0.3 mg/dL (0.0-1.0); Bilirubin,Total 0.5 mg/dL (0.3-1.0); Calcium 8.1 mg/dL (8.6-10.3); Globulin 2.5 g/dL (2.4-3.5); Magnesium 1.5 mg/dL (1.6-2.6); Phosphorous 3.3 mg/dL (2.7-4.5); Potassium 3.7 mEq/L (3.5-5.1); Total Protein 5.7 g/dL (6.4-8.9)
[2019-10-18] MEDS: Budesonide/Formoterol 160/4.5 1 PUFF INH IH SCH ×2 (07:28→19:40)
[2019-10-18] MEDS: Chlorhexidine Rinse 15 ML MOUTHWASH MM SCH ×2 (09:19→20:16)
[2019-10-18] MEDS: MethylPREDNISolone 40 MG/ML VIAL IVP SCH ×3 (09:19→23:41)
[2019-10-18] MEDS: Piperacillin/Tazobactam 3.375 GM in 0.9 % Sodium Chloride Mini Bag 100 ML IVPB SCH ×3 (09:19→23:41)
[2019-10-18] MEDS: FentaNYL (PF) 1,000 MCG/100 ML IV.SOLN IVC SCH ×2 (09:26→20:15)
[2019-10-18] MEDS: Dexmedetomidine HCl 400 MCG/100 ML MLS IVC SCH ×2 (12:00→18:54)
[2019-10-18] MEDS ORDERED: Furosemide 20 MG/2 ML VIAL IVP ONE (22:22)
[2019-10-19] MEDS ORDERED: amLODIPine 5 MG TABLET GTUBE ONE (01:38)
[2019-10-19] MEDS: Dexmedetomidine HCl 400 MCG/100 ML MLS IVC SCH ×3 (01:54→23:40)
[2019-10-19] MEDS: FentaNYL (PF) 2,500 MCG/50 ML IV.SOLN IVC SCH ×2 (01:55→21:12)
[2019-10-19] MEDS: Ipratropium/Albuterol Neb 3 ML IH SCH ×6 (03:10→23:34)
[2019-10-19] MEDS: Artificial Tears SOLN 15 ML BOTTLE BOTH EYES SCH ×6 (03:37→23:33)
[2019-10-19 03:53] LABS: INR 1.1
[2019-10-19 03:56] LABS: Basophils % 0.1 %; Hematocrit 36.7 % (35.3-44.9); Hemoglobin 11.5 g/dL (11.5-15.4); Immature Granulocytes % 1.1 % (0-4); Lymphocytes # 0.6 K/mcL (0.6-4.6); Lymphocytes % 3.6 %; Mean Corpuscular HGB Conc 31.3 g/dL (31.6-35.5); Mean Corpuscular Hemoglobin 29.3 pg (28.0-33.3); Mean Corpuscular Volume 93.6 fL (83.0-100.0); Mean Platelet Volume 9.6 fL (9.4-12.4); Monocytes # 0.4 K/mcL (0.0-1.3); Monocytes % 2.8 %; Neutrophils # 14.7 K/mcL (1.6-8.9); Platelet Count 220 K/mcL (140-400); Red Blood Count 3.92 M/mcL (3.82-4.97); Red Cell Distribution Width 12.9 % (11.5-14.5); Segmented Neutrophils % 92.4 %; White Blood Count 15.9 K/mcL (4.3-11.1)
[2019-10-19 04:00] LABS: VBG Ionized Calcium 1.15 mmol/L (1.15-1.35)
[2019-10-19 04:07] LABS: ABG Base Excess 0 mEq/L (-2 to 3); ABG HCO3 26 mEq/L (21-27); ABG Oxygen Saturation 91 % (95-98); ABG PCO2 50 mmHg (35-45); ABG PH 7.33 pH Units (7.32-7.45); ABG PO2 65 mmHg (85-104); ABG TCO2 28 mEq/L (20-26); Blood Gas Modality ASSIST CONTROL; Blood Gas VT 400 cc
[2019-10-19 04:16] LABS: Albumin 3.4 g/dL (3.5-5.7); Albumin/Globulin Ratio 1.1 (1.1-2.2); Bilirubin,Total 0.3 mg/dL (0.3-1.0); Calcium 8.8 mg/dL (8.6-10.3); Globulin 3.2 g/dL (2.4-3.5); Phosphorous 3.1 mg/dL (2.7-4.5); Potassium 3.2 mEq/L (3.5-5.1); Total Protein 6.6 g/dL (6.4-8.9)
[2019-10-19] MEDS ORDERED: Calcium Gluconate 1gm/50mL 1 GM/50 ML BAG IVPB PRN (04:30)
[2019-10-19] MEDS ORDERED: Potassium Chloride Elixir 20 MEQ/15 ML UDC GTUBE ONE (04:32)
[2019-10-19] MEDS: Potassium Chloride 40 MEQ/200 ML BAG IVPB PRN ×3 (04:45→18:35)
[2019-10-19] MEDS: Doxycycline 100 MG in 0.9 % Sodium Chloride Mini Bag 100 ML IVPB SCH ×2 (04:52→16:32)
[2019-10-19] MEDS: *HR* Heparin 5,000 UNIT/ML VIAL SQ SCH ×3 (04:57→21:12)
[2019-10-19] MEDS: Pantoprazole 40 MG VIAL IVP SCH (04:57)
[2019-10-19] MEDS: Insulin LISPRO 300 UNITS/3 ML VIAL SQ SCH ×4 (05:00→23:33)
[2019-10-19 06:12] LABS: Basophils % 0.1 %; Hematocrit 36.2 % (35.3-44.9); Hemoglobin 11.4 g/dL (11.5-15.4); Immature Granulocytes % 1.3 % (0-4); Lymphocytes # 0.5 K/mcL (0.6-4.6); Lymphocytes % 3.2 %; Mean Corpuscular HGB Conc 31.5 g/dL (31.6-35.5); Mean Corpuscular Hemoglobin 29.2 pg (28.0-33.3); Mean Corpuscular Volume 92.8 fL (83.0-100.0); Mean Platelet Volume 9.8 fL (9.4-12.4); Monocytes # 0.4 K/mcL (0.0-1.3); Monocytes % 2.8 %; Neutrophils # 13.7 K/mcL (1.6-8.9); Platelet Count 212 K/mcL (140-400); Red Cell Distribution Width 12.8 % (11.5-14.5); Segmented Neutrophils % 92.6 %; White Blood Count 14.8 K/mcL (4.3-11.1)
[2019-10-19 06:30] LABS: BUN/Creatinine Ratio 29 (6-26); Blood Urea Nitrogen 32 mg/dL (8-23); Calcium 9.1 mg/dL (8.6-10.3); Carbon Dioxide 22 mEq/L (23-29); Chloride 103 mEq/L (98-107); Glucose 301 mg/dL (70-105); Osmolality,Calculated 294 (280-300); Potassium 4.1 mEq/L (3.5-5.1); Sodium 133 mEq/L (136-145); eGFR For African Americans > 60 (> 60); eGFR For Non-African Americans 50 (> 60)
[2019-10-19] MEDS: Budesonide/Formoterol 160/4.5 1 PUFF INH IH SCH ×2 (07:30→19:48)
[2019-10-19] MEDS: Chlorhexidine Rinse 15 ML MOUTHWASH MM SCH ×2 (07:34→21:12)
[2019-10-19] MEDS: MethylPREDNISolone 40 MG/ML VIAL IVP SCH ×3 (07:34→23:32)
[2019-10-19] MEDS: Piperacillin/Tazobactam 3.375 GM in 0.9 % Sodium Chloride Mini Bag 100 ML IVPB SCH ×3 (07:34→23:33)
[2019-10-19] MEDS: Furosemide 20 MG/2 ML VIAL IVP SCH ×2 (09:12→21:12)
[2019-10-19 16:26] LABS: Albumin 3.3 g/dL (3.5-5.7); Albumin/Globulin Ratio 1.1 (1.1-2.2); Bilirubin,Total 0.3 mg/dL (0.3-1.0); Calcium 9.2 mg/dL (8.6-10.3); Globulin 3.1 g/dL (2.4-3.5); Magnesium 1.8 mg/dL (1.6-2.6); Potassium 3.7 mEq/L (3.5-5.1); Total Protein 6.4 g/dL (6.4-8.9)
[2019-10-20 03:15] LABS: Basophils % 0.1 %; Hemoglobin 11.1 g/dL (11.5-15.4); Immature Granulocytes % 1.8 % (0-4); Lymphocytes # 0.4 K/mcL (0.6-4.6); Lymphocytes % 2.5 %; Mean Corpuscular HGB Conc 30.8 g/dL (31.6-35.5); Mean Corpuscular Hemoglobin 28.4 pg (28.0-33.3); Mean Corpuscular Volume 92.1 fL (83.0-100.0); Mean Platelet Volume 9.6 fL (9.4-12.4); Monocytes # 0.3 K/mcL (0.0-1.3); Monocytes % 2.1 %; Neutrophils # 14.8 K/mcL (1.6-8.9); Platelet Count 261 K/mcL (140-400); Red Blood Count 3.91 M/mcL (3.82-4.97); Segmented Neutrophils % 93.5 %; White Blood Count 15.8 K/mcL (4.3-11.1)
[2019-10-20 03:19] LABS: VBG Ionized Calcium 1.13 mmol/L (1.15-1.35)
[2019-10-20] MEDS: Artificial Tears SOLN 15 ML BOTTLE BOTH EYES SCH ×7 (03:26→23:02)
[2019-10-20 03:33] LABS: BUN/Creatinine Ratio 37 (6-26); Blood Urea Nitrogen 39 mg/dL (8-23); Calcium 8.8 mg/dL (8.6-10.3); Carbon Dioxide 26 mEq/L (23-29); Chloride 101 mEq/L (98-107); Glucose 316 mg/dL (70-105); Osmolality,Calculated 303 (280-300); Potassium 3.7 mEq/L (3.5-5.1); Sodium 136 mEq/L (136-145); eGFR For African Americans > 60 (> 60); eGFR For Non-African Americans 53 (> 60)
[2019-10-20 03:34] LABS: Phosphorous 2.8 mg/dL (2.7-4.5)
[2019-10-20] MEDS: Ipratropium/Albuterol Neb 3 ML IH SCH ×6 (03:34→23:35)
[2019-10-20] MEDS: Potassium Chloride 40 MEQ/200 ML BAG IVPB PRN (04:26)
[2019-10-20 04:37] LABS: ABG Base Excess 1 mEq/L (-2 to 3); ABG HCO3 27 mEq/L (21-27); ABG Oxygen Saturation 90 % (95-98); ABG PCO2 51 mmHg (35-45); ABG PH 7.34 pH Units (7.32-7.45); ABG PO2 63 mmHg (85-104); ABG TCO2 29 mEq/L (20-26); Blood Gas VT 400 cc
[2019-10-20] MEDS: *HR* Heparin 5,000 UNIT/ML VIAL SQ SCH ×3 (05:21→19:56)
[2019-10-20] MEDS: Pantoprazole 40 MG VIAL IVP SCH (05:21)
[2019-10-20] MEDS: Doxycycline 100 MG in 0.9 % Sodium Chloride Mini Bag 100 ML IVPB SCH ×2 (05:21→16:50)
[2019-10-20] MEDS: Insulin LISPRO 300 UNITS/3 ML VIAL SQ SCH ×4 (05:25→23:10)
[2019-10-20] MEDS: Dexmedetomidine HCl 400 MCG/100 ML MLS IVC SCH (07:29)
[2019-10-20] MEDS: Chlorhexidine Rinse 15 ML MOUTHWASH MM SCH ×2 (07:30→19:27)
[2019-10-20] MEDS: MethylPREDNISolone 40 MG/ML VIAL IVP SCH ×3 (07:30→23:06)
[2019-10-20] MEDS: Piperacillin/Tazobactam 3.375 GM in 0.9 % Sodium Chloride Mini Bag 100 ML IVPB SCH ×3 (07:30→23:05)
[2019-10-20] MEDS ORDERED: Potassium Chloride Elixir 20 MEQ/15 ML UDC GTUBE ONE (07:52)
[2019-10-20] MEDS: FentaNYL (PF) 2,500 MCG/50 ML IV.SOLN IVC SCH ×2 (07:57→22:25)
[2019-10-20] MEDS: Calcium Gluconate 1gm/50mL 1 GM/50 ML BAG IVPB SCH ×2 (07:57→09:10)
[2019-10-20] MEDS: Budesonide/Formoterol 160/4.5 1 PUFF INH IH SCH ×2 (08:20→19:27)
[2019-10-20] MEDS: Furosemide 40 MG/4 ML VIAL IVP SCH ×2 (09:11→19:56)
[2019-10-20 11:53] LABS: VBG Ionized Calcium 1.23 mmol/L (1.15-1.35)
[2019-10-20] MEDS: Acetaminophen 325 MG TABLET PO PRN ×2 (13:31→20:05)
[2019-10-20] MEDS: Gabapentin 400 MG CAPSULE PO SCH ×2 (15:10→19:45)
[2019-10-20] MEDS ORDERED: Ondansetron 4 MG/2 ML VIAL ONE (15:23)
[2019-10-20] MEDS: Ondansetron 4 MG/2 ML VIAL IVP PRN ×2 (16:03→23:05)
[2019-10-20] MEDS: Acetaminophen/Butalbital/CaffeineTABLET PO PRN ×2 (16:49→23:06)
[2019-10-20] MEDS ORDERED: Benzocaine 20% 12 APPL GEL..GRAM. TP PRN (18:26)
[2019-10-20] MEDS: Nicotine 21 MG PATCH.TD24 TD SCH (19:56)
[2019-10-20] MEDS: Gabapentin 300 MG CAPSULE PO SCH (20:05)
[2019-10-21] MEDS: Ipratropium/Albuterol Neb 3 ML IH SCH ×6 (03:27→23:29)
[2019-10-21 04:35] LABS: Basophils % 0.2 %; Hematocrit 36.4 % (35.3-44.9); Hemoglobin 11.8 g/dL (11.5-15.4); Lymphocytes # 0.8 K/mcL (0.6-4.6); Lymphocytes % 5.5 %; Mean Corpuscular HGB Conc 32.4 g/dL (31.6-35.5); Mean Corpuscular Hemoglobin 29.7 pg (28.0-33.3); Mean Corpuscular Volume 91.7 fL (83.0-100.0); Mean Platelet Volume 9.3 fL (9.4-12.4); Monocytes # 0.7 K/mcL (0.0-1.3); Monocytes % 4.6 %; Neutrophils # 13.5 K/mcL (1.6-8.9); Nucleated Red Blood Cells 0.1 /100 WBC (0); Platelet Count 300 K/mcL (140-400); Red Blood Count 3.97 M/mcL (3.82-4.97); Red Cell Distribution Width 13.2 % (11.5-14.5); Segmented Neutrophils % 88.7 %; White Blood Count 15.3 K/mcL (4.3-11.1)
[2019-10-21 04:35] LABS: VBG Ionized Calcium 1.05 mmol/L (1.15-1.35)
[2019-10-21] MEDS ORDERED: *HR* OxyCODONE Immed Rel 5 MG TABLET PO ONE (04:38)
[2019-10-21 04:53] LABS: Albumin 3.2 g/dL (3.5-5.7); Albumin/Globulin Ratio 1.1 (1.1-2.2); Bilirubin,Total 0.4 mg/dL (0.3-1.0); Calcium 9.2 mg/dL (8.6-10.3); Magnesium 1.5 mg/dL (1.6-2.6); Potassium 3.8 mEq/L (3.5-5.1); Total Protein 6.2 g/dL (6.4-8.9)
[2019-10-21] MEDS: Artificial Tears SOLN 15 ML BOTTLE BOTH EYES SCH (05:14)
[2019-10-21] MEDS: Potassium Chloride 40 MEQ/200 ML BAG IVPB PRN (05:26)
[2019-10-21] MEDS: Doxycycline 100 MG in 0.9 % Sodium Chloride Mini Bag 100 ML IVPB SCH (05:26)
[2019-10-21] MEDS: Insulin LISPRO 300 UNITS/3 ML VIAL SQ SCH ×3 (05:27→17:21)
[2019-10-21] MEDS: *HR* Heparin 5,000 UNIT/ML VIAL SQ SCH ×3 (05:27→22:41)
[2019-10-21] MEDS: Gabapentin 400 MG CAPSULE PO SCH (06:53)
[2019-10-21] MEDS: Magnesium Oxide 400 MG TABLET PO ONE ×2 (06:53→08:48)
[2019-10-21 06:59] LABS: Mycoplasma pneumoniae IgG 0.86 U/L (<=0.09)
[2019-10-21] MEDS: Budesonide/Formoterol 160/4.5 1 PUFF INH IH SCH ×2 (07:09→19:50)
[2019-10-21] MEDS: Gabapentin 300 MG CAPSULE PO SCH ×3 (08:48→20:06)
[2019-10-21] MEDS: Piperacillin/Tazobactam 3.375 GM in 0.9 % Sodium Chloride Mini Bag 100 ML IVPB SCH ×3 (08:49→23:44)
[2019-10-21] MEDS: Furosemide 40 MG/4 ML VIAL IVP SCH ×2 (08:49→20:07)
[2019-10-21] MEDS: MethylPREDNISolone 40 MG/ML VIAL IVP SCH ×3 (08:49→23:44)
[2019-10-21] MEDS: Chlorhexidine Rinse 15 ML MOUTHWASH MM SCH (08:49)
[2019-10-21] MEDS: Nicotine 21 MG PATCH.TD24 TD SCH (08:50)
[2019-10-21] MEDS ORDERED: Cholecalciferol (D-3) 1,000 UNIT (25MCG) TABLET PO SCH (09:00)
[2019-10-21] MEDS ORDERED: Benzocaine 20% 12 APPL GEL..GRAM. TP PRN (10:46)
[2019-10-21] MEDS ORDERED: Albuterol 2.5 MG/3 ML NEBULIZER IH PRN (10:46)
[2019-10-21] MEDS ORDERED: *HR* Dextrose 50 % in Water (Vial) 50 ML VIAL IVP PRN (10:46)
[2019-10-21] MEDS ORDERED: Calcium Gluconate 1gm/50mL 1 GM/50 ML BAG IVPB PRN (10:46)
[2019-10-21] MEDS ORDERED: D5% in Water 1,000 ML IVC PRN (10:46)
[2019-10-21] MEDS ORDERED: Naloxone 0.4 MG/ML INJ IVP PRN (10:46)
[2019-10-21] MEDS ORDERED: Ondansetron 4 MG/2 ML VIAL IVP PRN (10:46)
[2019-10-21] MEDS ORDERED: Artificial Tears SOLN 15 ML BOTTLE BOTH EYES PRN (10:46)
[2019-10-21] MEDS ORDERED: FentaNYL (PF) 2,500 MCG/50 ML IV.SOLN IVC SCH (10:46)
[2019-10-21] MEDS ORDERED: Dextrose Gel 15 GM/37.5 ML TUBE PO PRN ×2 (10:46)
[2019-10-21] MEDS ORDERED: Dexmedetomidine HCl 400 MCG/100 ML MLS IVC SCH (10:46)
[2019-10-21] MEDS ORDERED: Potassium Chloride 40 MEQ/200 ML BAG IVPB PRN (10:46)
[2019-10-21] MEDS ORDERED: Ipratropium/Albuterol Neb 3 ML ONE (11:24)
[2019-10-21] MEDS: Cholecalciferol (D-3) 1,000 UNIT (25MCG) TABLET PO SCH (11:30)
[2019-10-21] MEDS ORDERED: Artificial Tears SOLN 15 ML BOTTLE BOTH EYES SCH (12:00)
[2019-10-21] MEDS ORDERED: Insulin LISPRO 300 UNITS/3 ML VIAL SQ SCH ×2 (12:00→21:00)
[2019-10-21] MEDS: Acetaminophen/Butalbital/CaffeineTABLET PO PRN (13:13)
[2019-10-21] MEDS ORDERED: Doxycycline 100 MG in 0.9 % Sodium Chloride Mini Bag 100 ML IVPB SCH (18:00)
[2019-10-21] MEDS: Doxycycline 100 MG CAPSULE PO SCH (20:05)
[2019-10-21] MEDS: Acetaminophen 325 MG TABLET PO PRN (20:06)
[2019-10-21] MEDS ORDERED: Chlorhexidine Rinse 15 ML MOUTHWASH MM SCH (21:00)
[2019-10-22] MEDS: Ipratropium/Albuterol Neb 3 ML IH SCH ×6 (03:42→23:09)
[2019-10-22] MEDS: *HR* Heparin 5,000 UNIT/ML VIAL SQ SCH ×3 (05:35→20:48)
[2019-10-22 06:43] LABS: Basophils # 0.1 K/mcL (0.0-0.2); Basophils % 0.5 %; Hematocrit 40.9 % (35.3-44.9); Hemoglobin 12.9 g/dL (11.5-15.4); Immature Granulocytes % 2.5 % (0-4); Lymphocytes # 1.2 K/mcL (0.6-4.6); Lymphocytes % 10.5 %; Mean Corpuscular HGB Conc 31.5 g/dL (31.6-35.5); Mean Corpuscular Hemoglobin 29.1 pg (28.0-33.3); Mean Corpuscular Volume 92.3 fL (83.0-100.0); Mean Platelet Volume 9.5 fL (9.4-12.4); Monocytes # 0.6 K/mcL (0.0-1.3); Monocytes % 5.5 %; Neutrophils # 8.9 K/mcL (1.6-8.9); Platelet Count 277 K/mcL (140-400); Red Blood Count 4.43 M/mcL (3.82-4.97); Red Cell Distribution Width 13.2 % (11.5-14.5)
[2019-10-22 06:59] LABS: Calcium 8.9 mg/dL (8.6-10.3); Potassium 4.3 mEq/L (3.5-5.1)
[2019-10-22] MEDS: Budesonide/Formoterol 160/4.5 1 PUFF INH IH SCH ×2 (07:39→19:31)
[2019-10-22] MEDS: Insulin LISPRO 300 UNITS/3 ML VIAL SQ SCH ×4 (08:35→20:47)
[2019-10-22] MEDS: MethylPREDNISolone 40 MG/ML VIAL IVP SCH (08:35)
[2019-10-22] MEDS: Furosemide 40 MG/4 ML VIAL IVP SCH (08:36)
[2019-10-22] MEDS: Doxycycline 100 MG CAPSULE PO SCH ×2 (08:36→20:48)
[2019-10-22] MEDS: Gabapentin 300 MG CAPSULE PO SCH ×3 (08:36→20:48)
[2019-10-22] MEDS: Cholecalciferol (D-3) 1,000 UNIT (25MCG) TABLET PO SCH (08:36)
[2019-10-22] MEDS: Nicotine 21 MG PATCH.TD24 TD SCH (08:37)
[2019-10-22] MEDS: Piperacillin/Tazobactam 3.375 GM in 0.9 % Sodium Chloride Mini Bag 100 ML IVPB SCH ×3 (08:37→23:17)
[2019-10-22] MEDS: Acetaminophen 325 MG TABLET PO PRN ×2 (10:37→16:50)
[2019-10-22] MEDS: Acetaminophen/Butalbital/CaffeineTABLET PO PRN (12:53)
[2019-10-23 02:48] LABS: Hematocrit 36.9 % (35.3-44.9); Hemoglobin 11.7 g/dL (11.5-15.4); Mean Corpuscular HGB Conc 31.7 g/dL (31.6-35.5); Mean Corpuscular Volume 91.6 fL (83.0-100.0); Mean Platelet Volume 9.3 fL (9.4-12.4); Platelet Count 255 K/mcL (140-400); Red Blood Count 4.03 M/mcL (3.82-4.97); White Blood Count 11.8 K/mcL (4.3-11.1)
[2019-10-23 03:09] LABS: Calcium 8.7 mg/dL (8.6-10.3); Potassium 3.6 mEq/L (3.5-5.1)
[2019-10-23 03:12] LABS: Eosinophils # 0.5 K/mcL (0.0-0.6); Lymphocytes # 3.8 K/mcL (0.6-4.6); Monocytes # 0.5 K/mcL (0.0-1.3); Neutrophils # 7.1 K/mcL (1.6-8.9); Platelet Estimate Normal (Normal)
[2019-10-23] MEDS: Ipratropium/Albuterol Neb 3 ML IH SCH ×2 (03:17→07:18)
[2019-10-23] MEDS: *HR* Heparin 5,000 UNIT/ML VIAL SQ SCH ×3 (05:28→20:55)
[2019-10-23] MEDS: Budesonide/Formoterol 160/4.5 1 PUFF INH IH SCH ×2 (07:18→19:48)
[2019-10-23] MEDS: Gabapentin 300 MG CAPSULE PO SCH ×3 (09:00→20:55)
[2019-10-23] MEDS: Cholecalciferol (D-3) 1,000 UNIT (25MCG) TABLET PO SCH (09:00)
[2019-10-23] MEDS: Nicotine 21 MG PATCH.TD24 TD SCH (09:00)
[2019-10-23] MEDS: Doxycycline 100 MG CAPSULE PO SCH ×2 (09:01→20:55)
[2019-10-23] MEDS: predniSONE 20 MG TABLET PO SCH (09:01)
[2019-10-23] MEDS: Acetaminophen 325 MG TABLET PO PRN (09:03)
[2019-10-23] MEDS: Piperacillin/Tazobactam 3.375 GM in 0.9 % Sodium Chloride Mini Bag 100 ML IVPB SCH ×2 (09:04→16:44)
[2019-10-23] MEDS: Insulin LISPRO 300 UNITS/3 ML VIAL SQ SCH ×4 (09:07→20:56)
[2019-10-23] MEDS ORDERED: Ipratropium/Albuterol Neb 3 ML IH PRN (09:58)
[2019-10-23] MEDS: Acetaminophen/Butalbital/CaffeineTABLET PO PRN (16:46)
[2019-10-24 03:14] LABS: Basophils # 0.1 K/mcL (0.0-0.2); Basophils % 0.7 %; Eosinophils # 0.2 K/mcL (0.0-0.6); Eosinophils % 1.8 %; Hematocrit 38.3 % (35.3-44.9); Hemoglobin 12.1 g/dL (11.5-15.4); Immature Granulocytes % 9.3 % (0-4); Lymphocytes # 2.5 K/mcL (0.6-4.6); Lymphocytes % 20.8 %; Mean Corpuscular HGB Conc 31.6 g/dL (31.6-35.5); Mean Corpuscular Hemoglobin 29.2 pg (28.0-33.3); Mean Corpuscular Volume 92.5 fL (83.0-100.0); Mean Platelet Volume 9.7 fL (9.4-12.4); Monocytes # 0.8 K/mcL (0.0-1.3); Monocytes % 6.7 %; Neutrophils # 7.3 K/mcL (1.6-8.9); Platelet Count 273 K/mcL (140-400); Red Blood Count 4.14 M/mcL (3.82-4.97); Red Cell Distribution Width 12.7 % (11.5-14.5); Segmented Neutrophils % 60.7 %
[2019-10-24 03:28] LABS: BUN/Creatinine Ratio 29 (6-26); Blood Urea Nitrogen 28 mg/dL (8-23); Calcium 8.6 mg/dL (8.6-10.3); Carbon Dioxide 33 mEq/L (23-29); Chloride 96 mEq/L (98-107); Glucose 287 mg/dL (70-105); Osmolality,Calculated 296 (280-300); Potassium 3.7 mEq/L (3.5-5.1); Sodium 135 mEq/L (136-145); eGFR For African Americans > 60 (> 60); eGFR For Non-African Americans 59 (> 60)
[2019-10-24 03:56] LABS: Platelet Estimate Normal (Normal)
[2019-10-24] MEDS: *HR* Heparin 5,000 UNIT/ML VIAL SQ SCH (05:38)
[2019-10-24] MEDS: Budesonide/Formoterol 160/4.5 1 PUFF INH IH SCH (07:25)
[2019-10-24 07:30] VITALS: BP 118/66
[2019-10-24] MEDS: Nicotine 21 MG PATCH.TD24 TD SCH (07:47)
[2019-10-24] MEDS: Insulin LISPRO 300 UNITS/3 ML VIAL SQ SCH (07:47)
[2019-10-24] MEDS: Doxycycline 100 MG CAPSULE PO SCH (07:48)
[2019-10-24] MEDS: Acetaminophen 325 MG TABLET PO PRN (07:48)
[2019-10-24] MEDS: Gabapentin 300 MG CAPSULE PO SCH (07:48)
[2019-10-24] MEDS: Cholecalciferol (D-3) 1,000 UNIT (25MCG) TABLET PO SCH (07:48)
[2019-10-24] MEDS: predniSONE 20 MG TABLET PO SCH (07:48)
== END 2019-10-24 11:35 | disposition home or self-care (01) | DRG 720 ==
LOC: EMEROOARM 12:31 → ICNU 20:25 → SUATTDRO 20:25 → ICNU 20:34 → 2ANU 10-22 14:22
PROVIDERS: ADMIT Pediatrics; ATTEND Family Medicine